=== PATIENT | female | born 1980 | race Caucasian/White ===

== ENCOUNTER → 2017-04-27 | Outpatient (CLI) | payer OTHER ==
[~2017-04-27] MED LIST: ALBU1AER9; BUPRTAB51 PO; CLON1TAB3 PO; LEVO-14 PO; MEDR150I IM; MELA3TAB12 PO; SERT1TAB68 PO; SNG10 PO
== END | disposition home or self-care (01) ==
LOC: C.PAPS 14:40
PROVIDERS: ATTEND Obstetrics & Gynecology
DX: Z12.4 Encounter for screening for malignant neoplasm of cervix (principal)